=== PATIENT | male | born 1985 | race Caucasian/White ===

== ENCOUNTER 2019-06-29 10:59 | Emergency (ER) | payer OTHER ==
[~2019-06-29] VITALS: Ht 185.4 cm; Wt 83.9 kg
[2019-06-29] MEDS ORDERED: SERTRALINE HCL50 MG PO (11:13)
[2019-06-29 11:54] LABS: INFLUENZA A ANTIGEN Negative (Negative); INFLUENZA B ANTIGEN Negative (Negative)
[2019-06-29 12:07] LABS: HEMATOCRIT 49.2 % (42.0-52.0); HEMOGLOBIN 17.1 gm/dL (14.0-18.0); MCH 33.8 pg (26.0-34.0); MCHC 34.9 g/dL (28.0-37.0); MCV 96.9 fL (80.0-100.0); RBC 5.07 mil/uL (4.50-6.00); RDW-CV 12.9 % (10.5-14.5); WBC 7.3 thou/uL (4.0-11.0)
[2019-06-29 12:10] LABS: CALCIUM 8.1 mg/dL (8.5-10.1); CREATININE 0.8 mg/dL (0.6-1.3); POTASSIUM 3.3 mmol/L (3.5-5.1)
[2019-06-29 12:14] LABS: ALBUMIN 4.1 g/dL (3.4-5.0); TOTAL BILIRUBIN 0.3 mg/dL (<0.1-1.0); TOTAL PROTEIN 7.9 g/dL (6.4-8.2)
[2019-06-29 12:19] LABS: URINE BILIRUBIN NEGATIVE (Negative); URINE BLOOD TRACE (Negative); URINE CLARITY CLEAR; URINE COLOR YELLOW; URINE GLUCOSE-RANDOM NEGATIVE (Negative); URINE KETONES NEGATIVE (Negative); URINE LEUKOCYTES TRACE (Negative); URINE NITRITE NEGATIVE (Negative); URINE PROTEIN NEGATIVE (Negative); URINE UROBILINOGEN 0.2 E.U./dl (0.2-1.0)
[2019-06-29 12:19] LABS: ACETAMINOPHEN < 2 ug/mL (10-30); ALCOHOL 232 mg/dL (<10); SALICYLATE 5.2 mg/dL (2.8-20.0)
[2019-06-29 12:27] LABS: AMP/METHAMP Negative (Negative); BARBITURATES Negative (Negative); BENZODIAZEPINES Negative (Negative); COCAINE Negative (Negative); METHADONE Negative (Negative); OPIATES Negative (Negative); PCP Negative (Negative); THC Negative (Negative)
[2019-06-29 12:29] LABS: SQUAMOUS 0-3 Few /LPF (0-3); URINE WBC 6-15 Few /HPF (0-5)
[2019-06-29 12:30] LABS: CASTS None Seen /LPF (None Seen); CRYSTALS None Seen /LPF (None Seen); URINE RBC 0-2 Rare /HPF (0-2)
[2019-06-29 14:44] VITALS: BP 125/75
== END 2019-06-29 14:45 | disposition home or self-care (01) ==
LOC: M.ERS 10:59
PROVIDERS: Personal Emergency Response Attendant
DX: F10.129 Alcohol abuse with intoxication, unspecified (principal); R45.851 Suicidal ideations; F17.210 Nicotine dependence, cigarettes, uncomplicated; Y90.7 Blood alcohol level of 200-239 mg/100 ml